=== PATIENT | female | born 1945 | race Caucasian/White ===

== ENCOUNTER 2019-04-22 13:50 | Inpatient (IN) ==
[2019-04-22] MEDS ORDERED: DEXTROSE 10% 25 GM/250 ML BAG IV PRN (15:41)
[2019-04-22] MEDS ORDERED: ONDANSETRON 4 MG/2 ML VIAL IV PRN (15:41)
[2019-04-22] MEDS ORDERED: GLUCAGON 1 MG VIAL IM PRN (15:41)
[2019-04-22] MEDS ORDERED: ACETAMINOPHEN 325 MG TABLET PO PRN (15:41)
[2019-04-22] MEDS: INSULIN REGULAR 100 UNIT/ML SUBCUT SCH ×2 (17:29→21:02)
[2019-04-22] MEDS: cefTRIAXone 1,000 MG in SYRINGE 1 EACH IV SCH (17:45)
[2019-04-22] MEDS: SODIUM CHLORIDE 0.9% 1,000 ML IV SCH (17:49)
[2019-04-22] MEDS: CALCIUM (CARBONATE)/VITAMIN D 500 MG-200 UNIT TABLET PO SCH (21:02)
[2019-04-22] MEDS: ROSUVASTATIN 20 MG TABLET PO SCH (21:02)
[2019-04-23] MEDS ORDERED: LEVOTHYROXINE 112 MCG TABLET PO SCH (06:30)
[2019-04-23] MEDS: INSULIN REGULAR 100 UNIT/ML SUBCUT SCH ×4 (08:01→21:09)
[2019-04-23 08:51] LABS: Basophils # 0.1 10*3/uL (0.0-0.2); Basophils % 0.5 % (0.0-0.8); Eosinophils # 0.8 10*3/uL (0.0-0.87); Eosinophils % 5.4 % (0.00-10.9); Hematocrit 35.2 VOL% (35.7-47.0); Hemoglobin 11.7 GM/DL (12.0-16.0); Immature Granulocytes % 2.8 %; Immature Granulocytes Absolute 0.44 #; Lymphocytes # 2.8 10*3/uL (1.4-4.0); Lymphocytes % 18.2 % (21.3-54.2); Mean Corpuscular HGB Conc 33.2 GM/DL (32-36); Monocytes % 4.5 % (1.7-12.7); Neutrophils % 68.6 % (38.7-73.9); Platelet Count 334 T/CUMM (130-400); Red Blood Count 3.87 MC/CUMM (3.8-5.5); Red Cell Distribution Width 12.7 % (9.3-17.3); White Blood Count 15.5 T/CUMM (4-12)
[2019-04-23 09:19] LABS: Albumin 2.5 G/DL (3.4-5.0); Bilirubin,Total 0.4 MG/DL (0.2-1.0); Calcium 8.6 MG/DL (8.5-10.1); Osmolality,Calculated 272.1 MOS/KG (273-304); Total Protein 6.5 G/DL (6.4-8.3)
[2019-04-23] MEDS: SPIRONOLACTONE 25 MG TABLET PO SCH (10:08)
[2019-04-23] MEDS: MULTIVITAMIN (CENTRUM) TABLET PO SCH (10:08)
[2019-04-23] MEDS: OMEGA 3 ACID ETHYL ESTERS 1 GM CAPSULE PO SCH (10:08)
[2019-04-23] MEDS: carvediloL 6.25 MG TABLET PO SCH (10:08)
[2019-04-23] MEDS: PANTOPRAZOLE 40 MG TABLET PO SCH (10:08)
[2019-04-23] MEDS: CALCIUM (CARBONATE)/VITAMIN D 500 MG-200 UNIT TABLET PO SCH ×2 (10:08→21:14)
[2019-04-23 11:32] LABS: Apearance,Urine CLEAR (Clear); Bilirubin,Urine Negative (Negative); Blood, Urine Small mg/dL (Negative); Glucose,Urine (UA) Negative (Negative); Ketones,Urine Negative (Negative); Nitrite,Urine Negative (Negative); Protein,Urine Negative; RBC,Urine 2 /HPF (0-4); Squamous Epithelial Cell,Urine Occasional /HPF (0-10); Urine Color Straw (Yellow); Urine Specific Gravity 1.008 (1.001-1.035); Urine Urobilinogen < 2.0 EU/DL (0.2-1.0); WBC,Urine <1 /HPF (0-6)
[2019-04-23] MEDS ORDERED: diphenhydrAMINE CAP 25 MG CAPSULE PO PRN (12:14)
[2019-04-23] MEDS: SODIUM CHLORIDE 0.9% 1,000 ML IV SCH (13:09)
[2019-04-23] MEDS: cefTRIAXone 1,000 MG in SYRINGE 1 EACH IV SCH (16:23)
[2019-04-23] MEDS: ROSUVASTATIN 20 MG TABLET PO SCH (21:14)
[2019-04-24] MEDS ORDERED: LEVOTHYROXINE 125 MCG TABLET PO SCH (06:30)
[2019-04-24 07:13] LABS: Basophils # 0.1 10*3/uL (0.0-0.2); Basophils % 0.9 % (0.0-0.8); Eosinophils % 7.2 % (0.00-10.9); Hematocrit 33.7 VOL% (35.7-47.0); Immature Granulocytes Absolute 0.83 #; Lymphocytes # 3.7 10*3/uL (1.4-4.0); Lymphocytes % 26.6 % (21.3-54.2); Mean Corpuscular HGB Conc 32.6 GM/DL (32-36); Mean Corpuscular Volume 92.1 FL (87-102); Monocytes % 5.3 % (1.7-12.7); NRBC # 0.05 10*3/uL; Platelet Count 332 T/CUMM (130-400); Red Blood Count 3.66 MC/CUMM (3.8-5.5); Red Cell Distribution Width 12.8 % (9.3-17.3); White Blood Count 13.9 T/CUMM (4-12)
[2019-04-24 07:14] LABS: Calcium 8.4 MG/DL (8.5-10.1); Osmolality,Calculated 275.7 MOS/KG (273-304)
[2019-04-24 07:47] LABS: Anisocytosis 1+; Band Neutrophils 13 % (0-10); Eosinophils 4 % (0-10); Lymphocytes 27 % (20-55); Platelet Estimate Normal; Segmented Neutrophils 51 % (50-85); Total Cells Counted 100
[2019-04-24] MEDS: INSULIN REGULAR 100 UNIT/ML SUBCUT SCH (08:07)
[2019-04-24 08:12] VITALS: BP 130/62
[2019-04-24] MEDS: carvediloL 6.25 MG TABLET PO SCH (09:03)
[2019-04-24] MEDS: OMEGA 3 ACID ETHYL ESTERS 1 GM CAPSULE PO SCH (09:03)
[2019-04-24] MEDS: MULTIVITAMIN (CENTRUM) TABLET PO SCH (09:03)
[2019-04-24] MEDS: CALCIUM (CARBONATE)/VITAMIN D 500 MG-200 UNIT TABLET PO SCH (09:03)
[2019-04-24] MEDS: PANTOPRAZOLE 40 MG TABLET PO SCH (09:04)
[2019-04-24] MEDS: SPIRONOLACTONE 25 MG TABLET PO SCH (09:04)
[2019-04-24] MEDS: SODIUM CHLORIDE 0.9% 1,000 ML IV SCH (09:05)
[2019-04-24] MEDS ORDERED: CEFUROXIME 500 MG TABLET PO SCH (21:00)
== END 2019-04-24 13:41 | disposition home or self-care (01) | DRG 690 ==
LOC: N.2W → SUATTDRO 14:52 → N.2E 04-23 14:59
PROVIDERS: ADMIT Internal Medicine; ATTEND Family Medicine